=== PATIENT | male | born 1990 | race Two or more races ===

== ENCOUNTER 2021-10-10 09:00 | Emergency (ER) | payer MEDICAID, OTHER ==
[~2021-10-10] VITALS: Ht 180.3 cm; Wt 79.9 kg
[2021-10-10 09:33] VITALS: BP 121/82
[2021-10-10] MEDS ORDERED: IBUP800T27 PO (09:56)
[2021-10-10] MEDS ORDERED: SULF400T11 PO (09:56)
== END 2021-10-10 10:06 | disposition home or self-care (01) ==
LOC: ER 09:00
DX: L02.511 Cutaneous abscess of right hand (principal); Z79.1 Long term (current) use of non-steroidal anti-inflammatories (NSAID); Z79.2 Long term (current) use of antibiotics; Z88.2 Allergy status to sulfonamides

== ENCOUNTER 2022-04-01 16:03 | Emergency (ER) | payer MEDICAID ==
[~2022-04-01] VITALS: Ht 188 cm; Wt 127.2 kg
[~2022-04-01 16:03] MED LIST: IBUP800T27 PO; SULF400T11 PO
[2022-04-01 16:22] VITALS: BP 147/94
[2022-04-01] MEDS ORDERED: ACCU-CHEK COMFORT CURVE STRIP VI ONE (16:30)
== END 2022-04-01 16:44 | disposition left against medical advice (07) ==
LOC: EDBD 16:03 → ER 16:03
DX: R56.9 Unspecified convulsions (principal)

== ENCOUNTER 2023-04-01 17:26 | Emergency (ER) | payer MEDICAID ==
[~2023-04-01] VITALS: Ht 180.3 cm; Wt 81.2 kg
[~2023-04-01 17:26] MED LIST changes: +IBUP-1456 PO; -IBUP800T27 PO
[2023-04-01 17:40] VITALS: BP 130/95; PULSE 89; RESP 18; O2SAT 99
[2023-04-01 18:48] LABS: Hematocrit 39.9 % (41.0-53.0); Hemoglobin 13.2 g/dL (13.5-17.5); Mean Corpuscular Hemoglobin 29.5 pg (28.0-32.0); Mean Corpuscular Hgb Conc. 33.1 g/dL (32.0-36.0); Red Blood Cells 4.48 10^6/uL (4.5-5.90); Red Cell Distribution Width 15.1 % (11.8-14.3); White Blood Cell 2.7 10^3/uL (4.4-10.8)
[2023-04-01 18:57] LABS: Band Neutrophils % (manual) 0; Basophils % (manual) 0 (0.0-2.0); Blast Cells 0; Metamyelocytes % 0; Myelocytes % 0; Promyelocytes % 0; Reactive Lymphocytes 0
[2023-04-01 18:58] LABS: Chloride 105 mmol/L (98-107); Potassium 3.8 mmol/L (3.5-5.1); Sodium 137 mmol/L (136-145)
[2023-04-01 18:59] LABS: Anion Gap 5 (5-15); Carbon Dioxide 27 mmol/L (20-30)
[2023-04-01 19:00] LABS: Calcium 9.4 mg/dL (8.5-10.1)
[2023-04-01 19:04] LABS: Glucose 90 mg/dL (74-106)
[2023-04-01 19:05] LABS: Blood Urea Nitrogen 6 mg/dL (9-23)
[2023-04-01 19:30] LABS: Anisocytosis Slight; Eosinophils % (manual) 20 (0-7); Lymphocytes % (manual) 20 (10.0-50.0); Monocytes % (manual) 11 (0-12); Platelet Estimate Adequate
[2023-04-01 19:31] LABS: Large Platelets FEW; Ovalocytes FEW
[2023-04-01] MEDS ORDERED: SULFAMETH-TRIMETH 80/16MG-ML 10 ML in D5W 5% 250 ML IV ONE (21:00)
[2023-04-01] MEDS ORDERED: cefTRIAXone SOD 1,000 MG VL IV ONE (21:00)
[2023-04-01] MEDS ORDERED: AZITHROMYCIN 250 MG TAB PO ONE (21:00)
[2023-04-01] MEDS ORDERED: BICT1TAB4 PO (21:14)
[2023-04-01] MEDS ORDERED: DOXY-286 PO (21:14)
[2023-04-01] MEDS ORDERED: BACDST PO (21:14)
[2023-04-02] MEDS ORDERED: LEVO500T91 PO (14:06)
== END 2023-04-01 21:14 | disposition left against medical advice (07) ==
LOC: ER 17:26
DX: J18.9 Pneumonia, unspecified organism (principal); D70.9 Neutropenia, unspecified; R04.2 Hemoptysis; R07.89 Other chest pain; Z79.1 Long term (current) use of non-steroidal anti-inflammatories (NSAID); Z79.899 Other long term (current) drug therapy; Z88.2 Allergy status to sulfonamides
CPT/HCPCS: 36415; 71045; 80048; 85007; 85027; 99284; J3490; J7060

== ENCOUNTER 2023-04-02 12:13 | Emergency (ER) | payer MEDICAID ==
[~2023-04-02] VITALS: Ht 180.3 cm; Wt 80.7 kg
[~2023-04-02 12:13] MED LIST changes: +BACDST PO; +BICT1TAB4 PO; +DOXY-286 PO
[2023-04-02] MEDS ORDERED: LEVO500T91 PO (14:06)
[2023-04-02 14:16] VITALS: BP 123/73; PULSE 89; RESP 18; TEMP 97.9; O2SAT 100
== END 2023-04-02 15:05 | disposition home or self-care (01) ==
LOC: ER 12:13
DX: J18.9 Pneumonia, unspecified organism (principal)

== ENCOUNTER 2023-05-30 12:56 | Emergency (ER) | payer MEDICAID ==
[~2023-05-30] VITALS: Ht 180.3 cm; Wt 83.3 kg
[~2023-05-30 12:56] MED LIST changes: +AMOX875T3 PO; +LEVO500T91 PO; +PRED20TA2 PO; +TOB03OS OP
[2023-05-30] MEDS: AZITHROMYCIN 250 MG TAB PO ONE (15:53)
[2023-05-30 16:29] LABS: Urine Bacteria FEW /hpf (None Seen); Urine Blood Negative /uL (Negative); Urine Clarity HAZY (Clear); Urine Color Yellow (Yellow); Urine Mucus FEW (None Seen); Urine Protein, UAD 1+ (Negative); Urine Specific Gravity 1.025 (1.001-1.035); Urine WBC 4 /hpf (0 - 3)
[2023-05-30] MEDS ORDERED: COROSUS EACH EAR (17:02)
[2023-05-30] MEDS ORDERED: AZIT-185 PO (17:02)
[2023-05-30 17:38] VITALS: BP 130/80; PULSE 92; RESP 18; TEMP 98.3; O2SAT 98
== END 2023-05-30 17:39 | disposition home or self-care (01) ==
LOC: ER 12:56
DX: J18.9 Pneumonia, unspecified organism (principal); H10.9 Unspecified conjunctivitis; H60.91 Unspecified otitis externa, right ear; R07.89 Other chest pain; F17.210 Nicotine dependence, cigarettes, uncomplicated; Z59.00 Homelessness unspecified; Z79.1 Long term (current) use of non-steroidal anti-inflammatories (NSAID); Z79.2 Long term (current) use of antibiotics; Z79.899 Other long term (current) drug therapy
CPT/HCPCS: 71046; 81001

== ENCOUNTER 2023-06-04 15:21 | Inpatient (IN) | payer MEDICAID ==
[~2023-06-04] VITALS: Ht 180.3 cm; Wt 81.8 kg
[~2023-06-04 15:21] MED LIST changes: +AZIT-185 PO; +COROSUS EACH EAR
[2023-06-04] MEDS: SODIUM CHLORIDE 0.9% 1,000 ML IV ONE (16:24)
[2023-06-04 16:53] VITALS: PULSE 124; RESP 20; O2SAT 97
[2023-06-04 16:57] LABS: Eosinophils # (auto) 0 10 ^3/uL (0-0.8); Neutrophils # (auto) 2.8 10 ^3/uL (1.6-8.6); White Blood Cell 4.6 10^3/uL (4.4-10.8)
[2023-06-04 16:59] LABS: Basophils # (auto) 0.1 10 ^3/uL (0-0.2); Basophils % (auto) 1.2 % (0.0-2.0); Eosinophils % (auto) 0.9 % (0.0-7.0); Hematocrit 29.8 % (41.0-53.0); Hemoglobin 9.7 g/dL (13.5-17.5); Lymphocytes % (auto) 21.7 % (10.0-50.0); Mean Corpuscular Hemoglobin 28.1 pg (28.0-32.0); Mean Corpuscular Hgb Conc. 32.6 g/dL (32.0-36.0); Mean Corpuscular Volume 86.2 fL (80.0-100.0); Monocytes # (auto) 0.7 10 ^3/uL (0-1.3); Monocytes % (auto) 15.3 % (0.0-12.0); Neutrophils % (auto) 60.9 % (37.0-80.0); Nucleated Red Blood Cells % 0.2 %; Red Blood Cells 3.45 10^6/uL (4.5-5.90); Red Cell Distribution Width 18.7 % (11.8-14.3)
[2023-06-04 17:17] LABS: Alanine Aminotransferase 20 U/L (7-40); Albumin 3.7 g/dL (3.2-4.8); Alkaline Phosphatase 113 U/L (46-116); Anion Gap 8 (5-15); Aspartate Aminotransferase 40 U/L (13-40); BUN/Creatinine Ratio 14.9 (10.0-20.0); Bilirubin, Total 1.1 mg/dL (0.2-1.0); Blood Urea Nitrogen 14 mg/dL (9-23); Calcium 8.8 mg/dL (8.5-10.1); Carbon Dioxide 25 mmol/L (20-30); Chloride 91 mmol/L (98-107); Glucose 118 mg/dL (74-106); Potassium 3.6 mmol/L (3.5-5.1); Sodium 124 mmol/L (136-145); Total Protein 6.6 g/dL (5.7-8.2)
[2023-06-04 17:23] LABS: Hypochromia Slight; Platelet Estimate Decreased
[2023-06-04] MEDS: PIPERACILLIN-TAZO 4.5GM 100 ML IV ONE (17:40)
[2023-06-04] MEDS: SODIUM CHLORIDE 0.9% 2,500 ML IV ONE ×2 (17:47→19:00)
[2023-06-04] MEDS: VANCOMYCIN 1GM/200ML 200 ML IV ONE (18:59)
[2023-06-04] MEDS ORDERED: MORPHINE SULFATE 4 MG/ML SYR/VIAL IV PRN (19:00)
[2023-06-04] MEDS: SODIUM CHLORIDE 0.9% 1,000 ML IV SCH (19:00)
[2023-06-04] MEDS ORDERED: DOCUSATE SOD 100 MG CAP PO PRN (19:00)
[2023-06-04] MEDS ORDERED: MORPHINE SULFATE INJ 2 MG/ml SYRG IV PRN (19:00)
[2023-06-04] MEDS ORDERED: VANCOMYCIN PER PHARMACY 0 MG IV SCH (19:00)
[2023-06-04 19:45] VITALS: PULSE 122; RESP 21; O2SAT 93
[2023-06-04 20:08] LABS: % Iron Saturation 15.2 % (20-55)
[2023-06-04 20:11] LABS: Ferritin 1041.1 ng/mL (22-322); Folate (Folic Acid) 11.96 ng/mL (>5.38)
[2023-06-04] MEDS: NYSTATIN (MOUTH-THROAT) 500,000 UNITS/5 ML SUSP MT SCH (21:45)
[2023-06-04] MEDS: CIPROFLOXACIN 0.3%OPTH(EYE) SOL 5ML LEFTEYE SCH (21:45)
[2023-06-04 21:47] LABS: Rapid Influenza A Negative (Negative); Rapid Influenza B Negative (Negative); Rapid Strep A Screen-Throat Negative
[2023-06-04] MEDS ORDERED: VANCOMYCIN 1GM/200ML 200 ML IV SCH (22:00)
[2023-06-04 23:41] VITALS: BP 126/76; PULSE 138; RESP 22; TEMP 99.6; O2SAT 96
[2023-06-05] VITALS (7 sets, daily range): BP systolic 102–117; BP diastolic 59–71; PULSE 95–116; RESP 17–20; TEMP 97.6–99.5; O2SAT 94–97
[2023-06-05] MEDS: PIPERACILLIN-TAZOB 3.375GM 100 ML IV SCH (00:54)
[2023-06-05] MEDS: DexAMETHasone SOD PHOS 10MG/1ML VIAL INJ IV SCH (00:54)
[2023-06-05 05:26] LABS: Basophils # (auto) 0 10 ^3/uL (0-0.2); Eosinophils # (auto) 0 10 ^3/uL (0-0.8); Eosinophils % (auto) 0.2 % (0.0-7.0); Hemoglobin 8.2 g/dL (13.5-17.5); Monocytes # (auto) 0.5 10 ^3/uL (0-1.3); White Blood Cell 3.9 10^3/uL (4.4-10.8)
[2023-06-05 05:27] LABS: Hematocrit 24.6 % (41.0-53.0); Lymphocytes # (auto) 0.6 10 ^3/uL (0.4-5.4); Lymphocytes % (auto) 14.4 % (10.0-50.0); Mean Corpuscular Hemoglobin 28.7 pg (28.0-32.0); Mean Corpuscular Hgb Conc. 33.5 g/dL (32.0-36.0); Mean Corpuscular Volume 85.8 fL (80.0-100.0); Monocytes % (auto) 13.3 % (0.0-12.0); Neutrophils # (auto) 2.8 10 ^3/uL (1.6-8.6); Neutrophils % (auto) 71.1 % (37.0-80.0); Nucleated Red Blood Cells % 0.1 %; Red Blood Cells 2.87 10^6/uL (4.5-5.90); Red Cell Distribution Width 18.5 % (11.8-14.3)
[2023-06-05 05:47] LABS: Alanine Aminotransferase 13 U/L (7-40); Albumin 2.7 g/dL (3.2-4.8); Alkaline Phosphatase 93 U/L (46-116); Anion Gap 5 (5-15); Aspartate Aminotransferase 26 U/L (13-40); BUN/Creatinine Ratio 12.6 (10.0-20.0); Bilirubin, Total 0.7 mg/dL (0.2-1.0); Blood Urea Nitrogen 11 mg/dL (9-23); Calcium 7.6 mg/dL (8.7-10.4); Carbon Dioxide 22 mmol/L (20-30); Chloride 99 mmol/L (98-107); Glucose 125 mg/dL (74-106); Potassium 3.7 mmol/L (3.5-5.1); Sodium 126 mmol/L (136-145); Total Protein 5.2 g/dL (5.7-8.2)
[2023-06-05] MEDS: VANCOMYCIN 1GM/200ML 200 ML IV SCH (12:05)
[2023-06-05 17:31] LABS: COVID19 ANTIGEN SOFIA FIA NEGATIVE (NEGATIVE)
[2023-06-05] MEDS: AZITHROMYCIN 250 MG TAB PO ONE (18:07)
[2023-06-05 20:22] LABS: Urine Bacteria NONE SEEN /hpf (None Seen); Urine Blood Negative /uL (Negative); Urine Clarity HAZY (Clear); Urine Color Colorless (Yellow); Urine Protein, UAD Negative (Negative); Urine Specific Gravity 1.015 (1.001-1.035); Urine Urobilinogen Normal (Negative); Urine WBC 2 /hpf (0 - 3); Urine pH 5.5 (5.0-8.0)
[2023-06-05 20:27] LABS: Amphetamine Screen, Urine Neg (NEGATIVE); Benzodiazephine Screen, Urine Neg (NEGATIVE); Cannabinoid Screen, Urine Neg (NEGATIVE); Cocaine Screen, Urine Neg (NEGATIVE); Opiate Scree,Urine Neg (NEGATIVE); Phencyclidine Screen, Urine Neg (NEGATIVE)
[2023-06-05 20:45] LABS: Barbiturate Scree,Urine Neg (NEGATIVE)
[2023-06-05] MEDS: ALPRAZolam 0.5 MG TAB PO SCH (22:00)
[2023-06-06] VITALS (8 sets, daily range): BP systolic 112–124; BP diastolic 67–78; PULSE 60–111; RESP 14–20; TEMP 97.2–98.4; O2SAT 92–98
[2023-06-06 08:06] LABS: Basos 0 % (Not Estab.); Eos 0 % (Not Estab.); Hematocrit 23.1 % (37.5-51.0); Hematology Comments: Note: (.); Hemoglobin 8.1 g/dL (13.0-17.7); Immature Cells Note (.); Lymphs 10 % (Not Estab.); Lymphs (Absolute) 0.4 x10E3/uL (0.7-3.1); MCH 29.1 pg (26.6-33.0); MCHC 35.1 g/dL (31.5-35.7); MCV 83 fL (79-97); Monocytes 12 % (Not Estab.); Monocytes (Absolute) 0.5 x10E3/uL (0.1-0.9); Neutrophils 75 % (Not Estab.); Platelets 65 x10E3/uL (150-450); RBC 2.78 x10E6/uL (4.14-5.80); RDW 15.5 % (11.6-15.4); WBC 3.9 x10E3/uL (3.4-10.8)
[2023-06-06 09:06] LABS: % CD 4 Pos Lymph 0.8 % (30.8-58.5); Absolute CD 4 Helper 3 /uL (359-1519); CD4/CD8 Ratio 0.01 (0.92-3.72)
[2023-06-06] MEDS: AZITHROMYCIN 250 MG TAB PO SCH (11:11)
[2023-06-06] MEDS: FERROUS SULFATE 325mg EC TAB PO SCH (18:19)
[2023-06-07 05:00] VITALS: BP 111/61; PULSE 96; RESP 18; TEMP 98; O2SAT 100
[2023-06-07 05:52] LABS: Red Cell Distribution Width 19.1 % (11.8-14.3); White Blood Cell 2.4 10^3/uL (4.4-10.8)
[2023-06-07 05:55] LABS: Hematocrit 23.7 % (41.0-53.0); Hemoglobin 7.9 g/dL (13.5-17.5); Mean Corpuscular Hemoglobin 28.7 pg (28.0-32.0); Mean Corpuscular Hgb Conc. 33.4 g/dL (32.0-36.0); Mean Corpuscular Volume 85.8 fL (80.0-100.0); Red Blood Cells 2.76 10^6/uL (4.5-5.90)
[2023-06-07 06:15] LABS: Alanine Aminotransferase 18 U/L (7-40); Albumin 2.7 g/dL (3.2-4.8); Alkaline Phosphatase 117 U/L (46-116); Anion Gap 8 (5-15); Aspartate Aminotransferase 29 U/L (13-40); BUN/Creatinine Ratio 13.7 (10.0-20.0); Basophils % (manual) 0 (0.0-2.0); Blast Cells 0; Blood Urea Nitrogen 10 mg/dL (9-23); Calcium 8.2 mg/dL (8.7-10.4); Carbon Dioxide 25 mmol/L (20-30); Chloride 99 mmol/L (98-107); Glucose 108 mg/dL (74-106); Magnesium 1.7 mg/dL (1.6-2.6); Metamyelocytes % 0; Myelocytes % 0; Promyelocytes % 0; Reactive Lymphocytes 0; Total Protein 5.2 g/dL (5.7-8.2)
[2023-06-07 06:33] LABS: Sodium 132 mmol/L (136-145)
[2023-06-07 06:47] LABS: Bilirubin, Total 0.6 mg/dL (0.2-1.0); Pre Albumin 5.6 md/dL (10.0-40.0)
[2023-06-07 06:51] LABS: Thyroid Stimulating Hormone 2.52 uIU/mL (0.55-4.78)
[2023-06-07 06:55] LABS: CRP High Sensitivity 6.76 mg/dL (<1.0)
[2023-06-07 08:00] VITALS: BP 113/61; PULSE 104; PULSE 107; RESP 14; TEMP 98.1; O2SAT 96
[2023-06-07 08:07] LABS: Erythrocyte Sedimentation Rate 79 mm/hr (0-20)
[2023-06-07 09:00] VITALS: BP 113/61; PULSE 104; RESP 14; TEMP 98.1; O2SAT 96
[2023-06-07 09:15] LABS: Band Neutrophils % (manual) 10; Eosinophils % (manual) 2 (0-7); Lymphocytes % (manual) 16 (10.0-50.0); Monocytes % (manual) 22 (0-12); Platelet Estimate Decreased
[2023-06-07] MEDS: BIKTARVY PO SCH (09:21)
[2023-06-07] MEDS: CYANOCOBALAMIN (B-12) 1000 MCG/1 ML VIAL IM SCH (09:36)
[2023-06-07 20:00] VITALS: PULSE 125; RESP 20; O2SAT 96
[2023-06-07 21:07] VITALS: BP 129/67; PULSE 125; RESP 25; TEMP 102.5; O2SAT 94
[2023-06-08] VITALS (9 sets, daily range): BP systolic 105–135; BP diastolic 49–71; PULSE 16–142; RESP 14–22; TEMP 97.6–101.2; O2SAT 95–97
[2023-06-08] MEDS: ACETAMINOPHEN 325 MG TAB PO PRN ×2 (03:36→21:11)
[2023-06-08] MEDS: guaiFENesin-DM 100/10mg/5ml SYR PO PRN (04:05)
[2023-06-08 06:31] LABS: Hematocrit 22.9 % (41.0-53.0); Mean Corpuscular Volume 86.2 fL (80.0-100.0); Red Blood Cells 2.66 10^6/uL (4.5-5.90); White Blood Cell 2.4 10^3/uL (4.4-10.8)
[2023-06-08 06:34] LABS: Hemoglobin 7.7 g/dL (13.5-17.5); Mean Corpuscular Hemoglobin 28.8 pg (28.0-32.0); Mean Corpuscular Hgb Conc. 33.5 g/dL (32.0-36.0); Red Cell Distribution Width 19.7 % (11.8-14.3)
[2023-06-08 06:39] LABS: Band Neutrophils % (manual) 0; Basophils % (manual) 0 (0.0-2.0); Blast Cells 0; Myelocytes % 0; Promyelocytes % 0; Reactive Lymphocytes 0
[2023-06-08 06:48] LABS: Alanine Aminotransferase 23 U/L (7-40); Alkaline Phosphatase 122 U/L (46-116); Anion Gap 7 (5-15); Aspartate Aminotransferase 37 U/L (13-40); BUN/Creatinine Ratio 11.7 (10.0-20.0); Blood Urea Nitrogen 9 mg/dL (9-23); Calcium 7.8 mg/dL (8.7-10.4); Carbon Dioxide 24 mmol/L (20-30); Chloride 99 mmol/L (98-107); Glucose 101 mg/dL (74-106); Potassium 2.7 mmol/L (3.5-5.1); Sodium 130 mmol/L (136-145)
[2023-06-08 06:49] LABS: Albumin 2.5 g/dL (3.2-4.8); Bilirubin, Total 1.1 mg/dL (0.2-1.0)
[2023-06-08 08:18] LABS: Eosinophils % (manual) 5 (0-7); Lymphocytes % (manual) 25 (10.0-50.0); Metamyelocytes % 1; Monocytes % (manual) 22 (0-12); Platelet Estimate Decreased
[2023-06-08] MEDS: POTASSIUM CHL 20MEQ/100ML 100 ML IV ONE (08:45)
[2023-06-08] MEDS: POTASSIUM CHL 20 Meq TABLET PO ONE (08:46)
[2023-06-08 09:19] LABS: Hepatitis B Surface Antigen Negative (Negative)
[2023-06-08 09:40] LABS: Hepatitis C Antibody Negative (Negative)
[2023-06-08] MEDS: SULFAMETHOX W/TRIMETH(800/160MG) DS TAB PO ONE (13:20)
[2023-06-08] MEDS: diphenhdrAMINE HCL 50 MG/1 ML VL IV ONE (17:52)
[2023-06-08] MEDS: dilTIAZem 25 MG/5 ML VIAL IV ONE (21:01)
[2023-06-09] VITALS (9 sets, daily range): BP systolic 111–143; BP diastolic 54–78; PULSE 94–140; RESP 18–22; TEMP 97.9–101; O2SAT 93–99
[2023-06-09 08:07] LABS: RPR Non Reactive (Non Reactive)
[2023-06-09 09:20] LABS: Hemoglobin 7.7 g/dL (13.5-17.5); White Blood Cell 2.5 10^3/uL (4.4-10.8)
[2023-06-09 09:22] LABS: Hematocrit 23.3 % (41.0-53.0); Mean Corpuscular Hemoglobin 28.5 pg (28.0-32.0); Mean Corpuscular Hgb Conc. 33.1 g/dL (32.0-36.0); Mean Corpuscular Volume 86.1 fL (80.0-100.0); Red Cell Distribution Width 19.7 % (11.8-14.3)
[2023-06-09 09:37] LABS: Alanine Aminotransferase 27 U/L (7-40); Albumin 2.8 g/dL (3.2-4.8); Alkaline Phosphatase 131 U/L (46-116); Anion Gap 4 (5-15); Aspartate Aminotransferase 47 U/L (13-40); BUN/Creatinine Ratio 11.5 (10.0-20.0); Blood Urea Nitrogen 9 mg/dL (9-23); Calcium 7.8 mg/dL (8.5-10.1); Carbon Dioxide 26 mmol/L (20-30); Chloride 99 mmol/L (98-107); Glucose 111 mg/dL (74-106); Potassium 3.3 mmol/L (3.5-5.1); Sodium 129 mmol/L (136-145)
[2023-06-09 09:38] LABS: Total Protein 5.3 g/dL (5.7-8.2)
[2023-06-09 09:59] LABS: Basophils % (manual) 0 (0.0-2.0); Blast Cells 0; Eosinophils % (manual) 0 (0-7); Myelocytes % 0; Promyelocytes % 0; Reactive Lymphocytes 0
[2023-06-09 11:06] LABS: Erythropoietin 150.2 mIU/mL (2.6-18.5)
[2023-06-09 13:47] LABS: Band Neutrophils % (manual) 4; Lymphocytes % (manual) 28 (10.0-50.0); Metamyelocytes % 4; Monocytes % (manual) 24 (0-12)
[2023-06-09 13:48] LABS: Platelet Estimate Decrea
[2023-06-09] MEDS: SULFAMETHOX W/TRIMETH(800/160MG) DS TAB PO ONE (18:50)
[2023-06-09] MEDS: POTASSIUM EFFERVESENT TAB 25 MEQ PO ONE (22:02)
[2023-06-09] MEDS: METOPROLOL TARTRATE 25 MG TAB PO ONE (22:03)
[2023-06-09] MEDS: PIPERACILLIN-TAZO 4.5GM 100 ML IV SCH (22:15)
[2023-06-10] VITALS (7 sets, daily range): BP systolic 108–130; BP diastolic 62–69; PULSE 95–140; RESP 18–32; TEMP 98.9–100.7; O2SAT 85–96
[2023-06-10 06:23] LABS: Hematocrit 21.4 % (41.0-53.0); Hemoglobin 7.2 g/dL (13.5-17.5); Mean Corpuscular Hemoglobin 28.7 pg (28.0-32.0); Mean Corpuscular Hgb Conc. 33.4 g/dL (32.0-36.0); Mean Corpuscular Volume 85.8 fL (80.0-100.0); Red Cell Distribution Width 19.5 % (11.8-14.3)
[2023-06-10 06:39] LABS: Alanine Aminotransferase 28 U/L (7-40); Alkaline Phosphatase 150 U/L (46-116); Anion Gap 6 (5-15); BUN/Creatinine Ratio 12.1 (10.0-20.0); Blood Urea Nitrogen 11 mg/dL (9-23); Calcium 7.8 mg/dL (8.5-10.1); Carbon Dioxide 24 mmol/L (20-30); Chloride 99 mmol/L (98-107); Glucose 109 mg/dL (74-106); Potassium 3.3 mmol/L (3.5-5.1); Sodium 129 mmol/L (136-145)
[2023-06-10 06:41] LABS: Albumin 2.7 g/dL (3.2-4.8); Aspartate Aminotransferase 59 U/L (13-40); Bilirubin, Total 0.7 mg/dL (0.2-1.0); Total Protein 5.1 g/dL (5.7-8.2)
[2023-06-10 07:36] LABS: White Blood Cell 1.4 10^3/uL (4.4-10.8)
[2023-06-10 07:37] LABS: Basophils % (manual) 0 (0.0-2.0); Blast Cells 0; Eosinophils % (manual) 0 (0-7); Metamyelocytes % 0; Myelocytes % 0; Promyelocytes % 0; Reactive Lymphocytes 0
[2023-06-10 08:04] LABS: Band Neutrophils % (manual) 10; Lymphocytes % (manual) 19 (10.0-50.0); Monocytes % (manual) 18 (0-12)
[2023-06-10 08:05] LABS: Platelet Estimate Decreased
[2023-06-10] MEDS: POTASSIUM CHL 20 Meq TABLET PO ONE (10:56)
[2023-06-10] MEDS: SULFAMETH TRIMETH IV ONE (12:30)
[2023-06-10] MEDS: D5W 5% IV ONE (12:30)
[2023-06-10 19:39] LABS: Lactic Acid w/Reflex 2.2 mmol/L (0.4-2.0)
[2023-06-10] MEDS: SULFAMETH TRIMETH IV SCH (22:00)
[2023-06-10] MEDS: D5W 5% IV SCH (22:00)
[2023-06-10] MEDS: CYANOCOBALAMIN (B-12) 1000 MCG/1 ML VIAL IM SCH (22:00)
[2023-06-11] VITALS (10 sets, daily range): BP systolic 105–132; BP diastolic 33–80; PULSE 104–132; RESP 18–36; TEMP 97.8–100.4; O2SAT 63–92
[2023-06-11 05:55] LABS: White Blood Cell 2.6 10^3/uL (4.4-10.8)
[2023-06-11 05:58] LABS: Hematocrit 20.1 % (41.0-53.0); Mean Corpuscular Hemoglobin 28.3 pg (28.0-32.0); Mean Corpuscular Hgb Conc. 32.8 g/dL (32.0-36.0); Mean Corpuscular Volume 86.2 fL (80.0-100.0); Red Blood Cells 2.33 10^6/uL (4.5-5.90); Red Cell Distribution Width 19.8 % (11.8-14.3)
[2023-06-11 06:07] LABS: Hemoglobin 6.6 g/dL (13.5-17.5)
[2023-06-11 06:08] LABS: Basophils % (manual) 0 (0.0-2.0); Blast Cells 0; Eosinophils % (manual) 0 (0-7); Myelocytes % 0; Promyelocytes % 0; Reactive Lymphocytes 0
[2023-06-11 06:11] LABS: Alanine Aminotransferase 27 U/L (7-40); Albumin 2.4 g/dL (3.2-4.8); Alkaline Phosphatase 162 U/L (46-116); Anion Gap 5 (5-15); Aspartate Aminotransferase 67 U/L (13-40); BUN/Creatinine Ratio 11.8 (10.0-20.0); Blood Urea Nitrogen 10 mg/dL (9-23); Calcium 7.5 mg/dL (8.7-10.4); Carbon Dioxide 24 mmol/L (20-30); Chloride 100 mmol/L (98-107); Glucose 107 mg/dL (74-106); Magnesium 1.8 mg/dL (1.6-2.6); Potassium 4.1 mmol/L (3.5-5.1); Sodium 129 mmol/L (136-145)
[2023-06-11 06:12] LABS: Bilirubin, Total 0.5 mg/dL (0.2-1.0); Total Protein 4.7 g/dL (5.7-8.2)
[2023-06-11 07:41] LABS: Band Neutrophils % (manual) 9; Lymphocytes % (manual) 39 (10.0-50.0); Metamyelocytes % 3; Monocytes % (manual) 22 (0-12); Platelet Estimate Decreased
[2023-06-11] MEDS: SULFAMETH TRIMETH IV SCH (10:01)
[2023-06-11] MEDS: D5W 5% IV SCH (10:01)
[2023-06-11] MEDS: ERYTHROMY OPTH OINT 5mg/gm 1gm or 3.5gm tube OP SCH (10:02)
[2023-06-11 13:07] LABS: QuantiFERON-TB Gold Plus Negative (Negative)
[2023-06-11] MEDS: cefTRIAXone 2GM/50ML D5W 50 ML IV SCH (15:48)
[2023-06-11] MEDS: predniSONE 20 MG TAB PO ONE (19:05)
[2023-06-11] MEDS: FUROSEMIDE 20 MG/2 ML VIAL IV ONE (22:34)
[2023-06-12] VITALS (37 sets, daily range): BP systolic 97–146; BP diastolic 57–85; PULSE 71–124; RESP 18–55; TEMP 96.9–99.5; O2SAT 83–98
[2023-06-12 06:12] LABS: Basophils # (auto) 0 10 ^3/uL (0-0.2); Eosinophils # (auto) 0 10 ^3/uL (0-0.8); Lymphocytes # (auto) 0.8 10 ^3/uL (0.4-5.4); Monocytes # (auto) 0.4 10 ^3/uL (0-1.3); Neutrophils # (auto) 1.8 10 ^3/uL (1.6-8.6)
[2023-06-12 06:16] LABS: Basophils % (auto) 0.5 % (0.0-2.0); Hematocrit 25.6 % (41.0-53.0); Hemoglobin 8.3 g/dL (13.5-17.5); Lymphocytes % (auto) 26.5 % (10.0-50.0); Mean Corpuscular Hemoglobin 27.9 pg (28.0-32.0); Mean Corpuscular Hgb Conc. 32.3 g/dL (32.0-36.0); Mean Corpuscular Volume 86.4 fL (80.0-100.0); Monocytes % (auto) 14.2 % (0.0-12.0); Neutrophils % (auto) 58.8 % (37.0-80.0); Nucleated Red Blood Cells % 1.1 %; Red Blood Cells 2.96 10^6/uL (4.5-5.90); Red Cell Distribution Width 19.9 % (11.8-14.3)
[2023-06-12 06:32] LABS: Alanine Aminotransferase 26 U/L (7-40); Albumin 2.5 g/dL (3.2-4.8); Alkaline Phosphatase 161 U/L (46-116); Anion Gap 5 (5-15); BUN/Creatinine Ratio 14.3 (10.0-20.0); Blood Urea Nitrogen 12 mg/dL (9-23); Calcium 7.7 mg/dL (8.7-10.4); Carbon Dioxide 25 mmol/L (20-30); Chloride 98 mmol/L (98-107); Glucose 141 mg/dL (74-106); Magnesium 1.8 mg/dL (1.6-2.6); Potassium 4.4 mmol/L (3.5-5.1); Sodium 128 mmol/L (136-145)
[2023-06-12 06:33] LABS: Aspartate Aminotransferase 61 U/L (13-40); Bilirubin, Total 0.4 mg/dL (0.2-1.0); Total Protein 4.9 g/dL (5.7-8.2)
[2023-06-12 07:49] LABS: Platelet Estimate Decreased
[2023-06-12 07:50] LABS: Anisocytosis Slight
[2023-06-12] MEDS: predniSONE 20 MG TAB PO SCH (09:45)
[2023-06-12] MEDS: FUROSEMIDE 40 MG/4 ML VIAL IV ONE (12:10)
[2023-06-12] MEDS: LORazepam 2MG/ML-1ML VIAL IV PRN (14:54)
[2023-06-12] MEDS: methylPREDNISolone SOD SUCC 125 MG/2 ML VL IV SCH (14:55)
[2023-06-12 15:43] LABS: Base Excess -1.8 mmol/L (-2.0-2.0)
[2023-06-12] MEDS: SULFAMETH TRIMETH IV SCH (17:17)
[2023-06-12] MEDS: D5W 5% IV SCH (17:17)
[2023-06-13] VITALS (44 sets, daily range): BP systolic 100–116; BP diastolic 52–74; PULSE 77–101; RESP 24–59; TEMP 97–98.2; O2SAT 66–100
[2023-06-13 04:15] LABS: Hemoglobin 7.6 g/dL (13.5-17.5); White Blood Cell 2.6 10^3/uL (4.4-10.8)
[2023-06-13 04:18] LABS: Hematocrit 22.8 % (41.0-53.0); Mean Corpuscular Hemoglobin 28.3 pg (28.0-32.0); Mean Corpuscular Hgb Conc. 33.3 g/dL (32.0-36.0); Mean Corpuscular Volume 84.9 fL (80.0-100.0); Red Blood Cells 2.68 10^6/uL (4.5-5.90)
[2023-06-13 04:22] LABS: Alanine Aminotransferase 19 U/L (7-40); Albumin 2.4 g/dL (3.2-4.8); Alkaline Phosphatase 136 U/L (46-116); Anion Gap 4 (5-15); Aspartate Aminotransferase 39 U/L (13-40); Calcium 7.4 mg/dL (8.7-10.4); Carbon Dioxide 23 mmol/L (20-30); Chloride 101 mmol/L (98-107); Glucose 145 mg/dL (74-106); Potassium 4.2 mmol/L (3.5-5.1); Sodium 128 mmol/L (136-145)
[2023-06-13 04:23] LABS: Bilirubin, Total 0.3 mg/dL (0.2-1.0)
[2023-06-13 05:08] LABS: Basophils % (manual) 0 (0.0-2.0); Blast Cells 0; Eosinophils % (manual) 0 (0-7); Metamyelocytes % 0; Myelocytes % 0; Promyelocytes % 0; Reactive Lymphocytes 0; Red Cell Distribution Width 20.2 % (11.8-14.3)
[2023-06-13 05:27] LABS: BUN/Creatinine Ratio 21.3 (10.0-20.0); Blood Urea Nitrogen 17 mg/dL (9-23)
[2023-06-13 05:29] LABS: Total Protein 4.7 g/dL (5.7-8.2)
[2023-06-13 07:31] LABS: Base Excess -3.2 mmol/L (-2.0-2.0)
[2023-06-13 08:09] LABS: Anisocytosis Slight; Band Neutrophils % (manual) 7; Lymphocytes % (manual) 19 (10.0-50.0); Monocytes % (manual) 11 (0-12); Platelet Estimate Markedly Decreased
[2023-06-13 08:10] LABS: Tear Drop Cells FEW
[2023-06-13] MEDS: FUROSEMIDE 40 MG/4 ML VIAL ONE (08:19)
[2023-06-13] MEDS: FUROSEMIDE 40 MG/4 ML VIAL IV ONE (08:36)
[2023-06-13] MEDS: LORazepam 2MG/ML-1ML VIAL IV ONE (10:00)
[2023-06-13] MEDS: FUROSEMIDE 40 MG/4 ML VIAL IV SCH (18:30)
[2023-06-13] MEDS: diphenhdrAMINE HCL 50 MG/1 ML VL IV PRN (22:20)
[2023-06-14] VITALS (45 sets, daily range): BP systolic 95–127; BP diastolic 57–91; PULSE 77–101; RESP 24–56; TEMP 97–98.2; O2SAT 84–100
[2023-06-14 10:32] LABS: Hemoglobin 8.2 g/dL (13.5-17.5)
[2023-06-14 10:35] LABS: Mean Corpuscular Hemoglobin 28.5 pg (28.0-32.0); Mean Corpuscular Hgb Conc. 32.6 g/dL (32.0-36.0); Mean Corpuscular Volume 87.5 fL (80.0-100.0); Red Blood Cells 2.86 10^6/uL (4.5-5.90); White Blood Cell 3.4 10^3/uL (4.4-10.8)
[2023-06-14 10:41] LABS: Basophils % (manual) 0 (0.0-2.0); Blast Cells 0; Eosinophils % (manual) 0 (0-7); Metamyelocytes % 0; Myelocytes % 0; Promyelocytes % 0; Reactive Lymphocytes 0
[2023-06-14 10:48] LABS: Alanine Aminotransferase 16 U/L (7-40); Albumin 2.5 g/dL (3.2-4.8); Alkaline Phosphatase 122 U/L (46-116); Anion Gap 9 (5-15); Aspartate Aminotransferase 31 U/L (13-40); Bilirubin, Total 0.3 mg/dL (0.2-1.0); Blood Urea Nitrogen 18 mg/dL (9-23); Calcium 7.5 mg/dL (8.5-10.1); Carbon Dioxide 20 mmol/L (20-30); Chloride 102 mmol/L (98-107); Glucose 126 mg/dL (74-106); Potassium 4.2 mmol/L (3.5-5.1); Sodium 131 mmol/L (136-145); Total Protein 4.8 g/dL (5.7-8.2)
[2023-06-14 11:04] LABS: Magnesium 2.1 mg/dL (1.6-2.6)
[2023-06-14 11:12] LABS: Anisocytosis Slight; Band Neutrophils % (manual) 7; Lymphocytes % (manual) 9 (10.0-50.0); Monocytes % (manual) 7 (0-12); Platelet Estimate Decreased; Polychromasia Slight
[2023-06-14 11:13] LABS: Tear Drop Cells FEW
[2023-06-15] VITALS (44 sets, daily range): BP systolic 108–130; BP diastolic 53–85; PULSE 67–97; RESP 11–49; TEMP 97.7–98.5; O2SAT 92–100
[2023-06-15] MEDS ORDERED: MIDAZOLAM HCL 5 MG/ML-1ML VIAL ONE (09:59)
[2023-06-15] MEDS ORDERED: LIDOCAINE 2% JELLY 11ml (GLYDO) ONE (09:59)
[2023-06-15] MEDS ORDERED: diphenhdrAMINE HCL 50 MG/1 ML VL ONE (10:00)
[2023-06-15] MEDS ORDERED: fentaNYL CITRATE 100 MCG/2 ML VL ONE (10:00)
[2023-06-15] MEDS ORDERED: LIDOCAINE 2%HCL (LOCAL ANESTH.) INJ 20ML MDV ONE (10:03)
[2023-06-15] MEDS ORDERED: EPINEPHrine HCL 1 MG/1 ML AMP ONE (10:03)
[2023-06-15 10:16] LABS: Basophils # (auto) 0 10 ^3/uL (0-0.2); Eosinophils # (auto) 0 10 ^3/uL (0-0.8); Lymphocytes # (auto) 0.3 10 ^3/uL (0.4-5.4); Monocytes # (auto) 0.2 10 ^3/uL (0-1.3); Neutrophils # (auto) 2.3 10 ^3/uL (1.6-8.6); White Blood Cell 2.8 10^3/uL (4.4-10.8)
[2023-06-15 10:18] LABS: Basophils % (auto) 0.6 % (0.0-2.0); Hematocrit 23.3 % (41.0-53.0); Hemoglobin 7.8 g/dL (13.5-17.5); Lymphocytes % (auto) 11.6 % (10.0-50.0); Mean Corpuscular Hemoglobin 29.2 pg (28.0-32.0); Mean Corpuscular Hgb Conc. 33.3 g/dL (32.0-36.0); Mean Corpuscular Volume 87.7 fL (80.0-100.0); Monocytes % (auto) 5.8 % (0.0-12.0); Nucleated Red Blood Cells % 0.8 %; Red Blood Cells 2.66 10^6/uL (4.5-5.90)
[2023-06-15 10:27] LABS: Red Cell Distribution Width 20.6 % (11.8-14.3)
[2023-06-15 10:31] LABS: Alanine Aminotransferase 31 U/L (7-40); Albumin 2.4 g/dL (3.2-4.8); Alkaline Phosphatase 128 U/L (46-116); Anion Gap 8 (5-15); Aspartate Aminotransferase 40 U/L (13-40); BUN/Creatinine Ratio 17.4 (10.0-20.0); Bilirubin, Total 0.3 mg/dL (0.2-1.0); Blood Urea Nitrogen 15 mg/dL (9-23); Calcium 7.5 mg/dL (8.7-10.4); Carbon Dioxide 20 mmol/L (20-30); Chloride 102 mmol/L (98-107); Glucose 176 mg/dL (74-106); Magnesium 2.1 mg/dL (1.6-2.6); Potassium 4.2 mmol/L (3.5-5.1); Sodium 130 mmol/L (136-145); Total Protein 4.5 g/dL (5.7-8.2)
[2023-06-15] MEDS: MUPIROCIN 2% OINT 15gm or 22gm FOR MRSA NARES EACHNOSTRI SCH (22:47)
[2023-06-16] VITALS (7 sets, daily range): BP systolic 101–126; BP diastolic 49–80; PULSE 72–95; RESP 16–18; TEMP 97.6–98.3; O2SAT 95–98
[2023-06-16 05:53] LABS: Basophils # (auto) 0 10 ^3/uL (0-0.2); Basophils % (auto) 0.3 % (0.0-2.0); Eosinophils # (auto) 0 10 ^3/uL (0-0.8); Hemoglobin 8.5 g/dL (13.5-17.5); Lymphocytes # (auto) 0.4 10 ^3/uL (0.4-5.4); Lymphocytes % (auto) 12.7 % (10.0-50.0); Mean Corpuscular Hemoglobin 28.9 pg (28.0-32.0); Mean Corpuscular Hgb Conc. 32.7 g/dL (32.0-36.0); Mean Corpuscular Volume 88.6 fL (80.0-100.0); Monocytes # (auto) 0.2 10 ^3/uL (0-1.3); Monocytes % (auto) 6.6 % (0.0-12.0); Neutrophils # (auto) 2.5 10 ^3/uL (1.6-8.6); Neutrophils % (auto) 80.4 % (37.0-80.0); Nucleated Red Blood Cells % 0.7 %; Red Blood Cells 2.94 10^6/uL (4.5-5.90); White Blood Cell 3.1 10^3/uL (4.4-10.8)
[2023-06-16 06:07] LABS: Alanine Aminotransferase 28 U/L (7-40); Alkaline Phosphatase 119 U/L (46-116); Anion Gap 8 (5-15); Calcium 8.1 mg/dL (8.7-10.4); Carbon Dioxide 22 mmol/L (20-30); Chloride 102 mmol/L (98-107); Glucose 106 mg/dL (74-106); Magnesium 2.1 mg/dL (1.6-2.6); Sodium 132 mmol/L (136-145)
[2023-06-16 06:08] LABS: Albumin 2.6 g/dL (3.2-4.8); Aspartate Aminotransferase 28 U/L (13-40)
[2023-06-16 06:09] LABS: Bilirubin, Total 0.4 mg/dL (0.2-1.0); Total Protein 4.9 g/dL (5.7-8.2)
[2023-06-16 06:20] LABS: Red Cell Distribution Width 20.5 % (11.8-14.3)
[2023-06-16 06:34] LABS: BUN/Creatinine Ratio 20.5 (10.0-20.0); Blood Urea Nitrogen 16 mg/dL (9-23)
[2023-06-16] MEDS: LORATADINE 10 MG TAB PO SCH (13:09)
[2023-06-16 20:03] LABS: Lactic Acid w/Reflex 3.2 mmol/L (0.4-2.0)
[2023-06-16] MEDS: SODIUM CHLORIDE 0.9% 1,000 ML IV ONE (21:32)
[2023-06-16] MEDS: ONDANSETRON HCL 4 MG/2 ML VIAL IV PRN (21:56)
[2023-06-17] VITALS (8 sets, daily range): BP systolic 113–148; BP diastolic 68–90; PULSE 87–109; RESP 19–92; TEMP 97.5–98.7; O2SAT 95–98
[2023-06-17 06:17] LABS: Hemoglobin 8.3 g/dL (13.5-17.5); White Blood Cell 3.4 10^3/uL (4.4-10.8)
[2023-06-17 06:20] LABS: Hematocrit 25.1 % (41.0-53.0); Mean Corpuscular Hemoglobin 29.1 pg (28.0-32.0); Mean Corpuscular Hgb Conc. 33.1 g/dL (32.0-36.0); Red Blood Cells 2.85 10^6/uL (4.5-5.90)
[2023-06-17 06:32] LABS: Alanine Aminotransferase 38 U/L (7-40); Alkaline Phosphatase 131 U/L (46-116); Calcium 8.2 mg/dL (8.7-10.4); Carbon Dioxide 23 mmol/L (20-30); Chloride 101 mmol/L (98-107)
[2023-06-17 06:33] LABS: Albumin 2.7 g/dL (3.2-4.8); Anion Gap 7 (5-15); Aspartate Aminotransferase 40 U/L (13-40); BUN/Creatinine Ratio 18.2 (10.0-20.0); Bilirubin, Total 0.4 mg/dL (0.2-1.0); Blood Urea Nitrogen 14 mg/dL (9-23); Glucose 99 mg/dL (74-106); Magnesium 1.9 mg/dL (1.6-2.6); Potassium 4.4 mmol/L (3.5-5.1); Sodium 131 mmol/L (136-145); Total Protein 4.9 g/dL (5.7-8.2)
[2023-06-17 06:58] LABS: Red Cell Distribution Width 21.2 % (11.8-14.3)
[2023-06-17 06:59] LABS: Basophils % (manual) 0 (0.0-2.0); Blast Cells 0; Eosinophils % (manual) 0 (0-7); Myelocytes % 0; Promyelocytes % 0; Reactive Lymphocytes 0
[2023-06-17 08:04] LABS: Band Neutrophils % (manual) 9; Lymphocytes % (manual) 13 (10.0-50.0); Metamyelocytes % 1; Monocytes % (manual) 5 (0-12); Platelet Estimate Decreased
[2023-06-17 08:05] LABS: Tear Drop Cells FEW
[2023-06-18] VITALS (8 sets, daily range): BP systolic 103–120; BP diastolic 59–80; PULSE 71–103; RESP 16–20; TEMP 97–98.1; O2SAT 93–100
[2023-06-18] MEDS ORDERED: methylPREDNISolone SOD SUCC 125 MG/2 ML VL IV SCH (15:30)
[2023-06-18] MEDS: predniSONE 20 MG TAB PO SCH (21:41)
[2023-06-19 01:00] VITALS: BP 113/59; PULSE 97; RESP 20; TEMP 98.3; O2SAT 97
[2023-06-19 05:00] VITALS: BP 104/61; PULSE 98; TEMP 98.1; O2SAT 99
[2023-06-19 07:30] VITALS: PULSE 93
[2023-06-19 09:00] VITALS: BP 113/66; PULSE 97; RESP 16; TEMP 98.4; O2SAT 93
[2023-06-19 13:00] VITALS: BP 125/70; PULSE 121; RESP 16; TEMP 98.4; O2SAT 93
== END 2023-06-19 14:00 | disposition left against medical advice (07) | DRG 890 ==
LOC: ER 15:21 → TELE-EAST 19:06 → TELE 19:06 → TELE-EAST 23:14 → ICU WEST 06-12 14:00 → TELE-EAST 06-15 15:41
PROVIDERS: ADMIT Nurse Practitioner Family; ATTEND Internal Medicine
PROC: 30233N1 Transfusion of Nonautologous Red Blood Cells into Peripheral Vein, Percutaneous Approach (ICD-10-PCS; principal; 2023-06-11)
DX: B20 Human immunodeficiency virus [HIV] disease (principal); A41.9 Sepsis, unspecified organism; B59 Pneumocystosis; J96.01 Acute respiratory failure with hypoxia; E22.2 Syndrome of inappropriate secretion of antidiuretic hormone; D69.6 Thrombocytopenia, unspecified; C46.9 Kaposi's sarcoma, unspecified; D63.1 Anemia in chronic kidney disease; Z53.29 Procedure and treatment not carried out because of patient's decision for other reasons; Z20.822 Contact with and (suspected) exposure to COVID-19; H10.32 Unspecified acute conjunctivitis, left eye; N18.9 Chronic kidney disease, unspecified; F17.210 Nicotine dependence, cigarettes, uncomplicated; L02.01 Cutaneous abscess of face; Z88.1 Allergy status to other antibiotic agents; Z91.199 Patient's noncompliance with other medical treatment and regimen due to unspecified reason; Z88.3 Allergy status to other anti-infective agents; Z59.02 Unsheltered homelessness
CPT/HCPCS: 36415; 36600; 71045; 71250; 80053; 80307; 81001; 82040; 82607; 82668; 82728; 82746; 82805; 83010; 83540; 83550; 83605; 83615; 83735; 83930; 83935; 84300; 84439; 84443; 85007; 85025; 85027; 85045; 85384; 85652; 86141; 86360; 86592; 86803; 86850; 86880; 86885; 86900; 86901; 86920; 87040; 87070; 87081; 87205; 87340; 87426; 87536; 87556; 87804; 87880; 93005; 97163; 99291; G0378; J0171; J1100; J2250; J2405; J2543; J3480; J3490; J7060

== ENCOUNTER 2023-06-21 12:16 | Inpatient (IN) | payer MEDICAID ==
[~2023-06-21] VITALS: Ht 177.8 cm; Wt 79.0 kg
[~2023-06-21 12:16] MED LIST changes: -AMOX875T3 PO; -BACDST PO; -DOXY-286 PO; -IBUP-1456 PO; -LEVO500T91 PO; -SULF400T11 PO
[2023-06-21] MEDS: DexAMETHasone SOD PHOS 10MG/1ML VIAL INJ IV ONE (12:30)
[2023-06-21] MEDS: IPRATROPIUM BROM 0.5 MG/2.5ML INH SOL NEB ONE (13:00)
[2023-06-21] MEDS: ALBUTEROL SULF 2.5 MG/0.5ML(0.5%) NEB SOLN NEB ONE (13:00)
[2023-06-21 13:45] LABS: Hematocrit 24.7 % (41.0-53.0); Mean Corpuscular Hemoglobin 29.8 pg (28.0-32.0); Mean Corpuscular Hgb Conc. 32.5 g/dL (32.0-36.0); Mean Corpuscular Volume 91.8 fL (80.0-100.0); Red Blood Cells 2.69 10^6/uL (4.5-5.90); Red Cell Distribution Width 23.8 % (11.8-14.3); White Blood Cell 10.1 10^3/uL (4.4-10.8)
[2023-06-21 13:47] LABS: Basophils % (manual) 0 (0.0-2.0); Blast Cells 0; Eosinophils % (manual) 0 (0-7); Metamyelocytes % 0; Myelocytes % 0; Promyelocytes % 0; Reactive Lymphocytes 0
[2023-06-21 13:48] LABS: Base Excess -4.6 mmol/L (-2.0-2.0)
[2023-06-21 13:59] LABS: Alanine Aminotransferase 47 U/L (7-40); Alkaline Phosphatase 131 U/L (46-116); Anion Gap 13 (5-15); Calcium 7.7 mg/dL (8.7-10.4); Carbon Dioxide 20 mmol/L (20-30); Chloride 93 mmol/L (98-107); Glucose 152 mg/dL (74-106); Potassium 5.4 mmol/L (3.5-5.1)
[2023-06-21 14:00] LABS: Albumin 2.6 g/dL (3.2-4.8); Aspartate Aminotransferase 67 U/L (13-40); BUN/Creatinine Ratio 19.6 (10.0-20.0); Bilirubin, Total 0.8 mg/dL (0.2-1.0); Blood Urea Nitrogen 38 mg/dL (9-23); Total Protein 4.7 g/dL (5.7-8.2)
[2023-06-21] MEDS ORDERED: VANCOMYCIN PER PHARMACY 0 MG IV SCH (14:00)
[2023-06-21] MEDS: SODIUM CHLORIDE 0.9% 1,000 ML IV ONE ×2 (14:00→15:58)
[2023-06-21 14:04] LABS: Sodium 126 mmol/L (136-145)
[2023-06-21 14:17] LABS: Band Neutrophils % (manual) 8; Lymphocytes % (manual) 13 (10.0-50.0); Monocytes % (manual) 10 (0-12)
[2023-06-21] MEDS: PIPERACILLIN-TAZOB 3.375GM 100 ML IV ONE (14:17)
[2023-06-21 14:18] LABS: Large Platelets FEW; Platelet Estimate Decrea
[2023-06-21 14:36] VITALS: PULSE 130; RESP 32; O2SAT 95
[2023-06-21 15:39] LABS: Lactic Acid w/Reflex 6.4 mmol/L (0.4-2.0)
[2023-06-21] MEDS: ENOXAPARIN SOD 40 MG/0.4 ML SYRINGE SC ONE (15:45)
[2023-06-21] MEDS: VANCOMYCIN 1GM/200ML 200 ML IV ONE (16:30)
[2023-06-21] MEDS: ACETAMINOPHEN 500 MG TAB PO ONE (18:19)
[2023-06-21] MEDS: CALCIUM GLUC 1,000mg/50ml-NS 50 ML IV SCH (18:31)
[2023-06-21 19:48] VITALS: PULSE 116; RESP 20; O2SAT 97
[2023-06-21 20:51] LABS: Urine Bacteria None Seen /hpf (None Seen)
[2023-06-21 21:02] LABS: Urine Blood TRACE /uL (Negative); Urine Clarity Clear (Clear); Urine Color Light-Yellow (Yellow); Urine Mucus FEW (None Seen); Urine Protein, UAD TRACE (Negative); Urine Specific Gravity 1.017 (1.001-1.035); Urine Urobilinogen Normal (Negative); Urine WBC 5 /hpf (0 - 3)
[2023-06-22] VITALS (7 sets, daily range): BP systolic 109–130; BP diastolic 40–76; PULSE 111–148; RESP 22–35; TEMP 98.2–98.8; O2SAT 91–100
[2023-06-22] MEDS ORDERED: NITROGLYCERIN 0.4 MG SL TAB SL PRN (06:00)
[2023-06-22] MEDS ORDERED: ONDANSETRON HCL 4 MG/2 ML VIAL IV PRN (06:00)
[2023-06-22] MEDS ORDERED: ACETAMINOPHEN 325 MG TAB PO PRN (06:00)
[2023-06-22] MEDS ORDERED: HYDROcodone-ACET 5/325MG TAB PO PRN (06:00)
[2023-06-22] MEDS ORDERED: ALBUTEROL SULF 2.5 MG/0.5ML(0.5%) NEB SOLN NEB PRN (06:00)
[2023-06-22] MEDS ORDERED: MORPHINE SULFATE INJ 2 MG/ml SYRG IV PRN (06:00)
[2023-06-22] MEDS: SODIUM CHLORIDE 0.9% 1,000 ML IV ONE (06:10)
[2023-06-22 06:37] LABS: Chloride 96 mmol/L (98-107); Potassium 4.8 mmol/L (3.5-5.1); Sodium 126 mmol/L (136-145)
[2023-06-22 06:38] LABS: Anion Gap 7 (5-15); Calcium 7.9 mg/dL (8.7-10.4); Carbon Dioxide 23 mmol/L (20-30)
[2023-06-22 06:43] LABS: BUN/Creatinine Ratio 22.1 (10.0-20.0); Blood Urea Nitrogen 33 mg/dL (9-23); Glucose 118 mg/dL (74-106)
[2023-06-22] MEDS: dilTIAZem 25 MG/5 ML VIAL IV ONE (07:03)
[2023-06-22] MEDS: cefTRIAXone 1GM/50ML D5W 50 ML IV SCH (08:44)
[2023-06-22] MEDS: AZITHROMYCIN 500MG/ 250ML 250 ML IV SCH (09:37)
[2023-06-22 10:59] LABS: Eosinophils # (auto) 0 10 ^3/uL (0-0.8); Eosinophils % (auto) 0.1 % (0.0-7.0); Monocytes # (auto) 0.3 10 ^3/uL (0-1.3); Nucleated Red Blood Cells % 1.9 %
[2023-06-22 11:01] LABS: Basophils # (auto) 0.1 10 ^3/uL (0-0.2); Basophils % (auto) 0.9 % (0.0-2.0); Hematocrit 18.4 % (41.0-53.0); Lymphocytes # (auto) 0.6 10 ^3/uL (0.4-5.4); Lymphocytes % (auto) 6.8 % (10.0-50.0); Mean Corpuscular Hemoglobin 30.6 pg (28.0-32.0); Mean Corpuscular Hgb Conc. 33.3 g/dL (32.0-36.0); Monocytes % (auto) 4.2 % (0.0-12.0); Neutrophils # (auto) 7.3 10 ^3/uL (1.6-8.6); White Blood Cell 8.3 10^3/uL (4.4-10.8)
[2023-06-22 11:03] LABS: Red Cell Distribution Width 25.2 % (11.8-14.3)
[2023-06-22 11:05] LABS: Hemoglobin 6.1 g/dL (13.5-17.5)
[2023-06-22 11:23] LABS: Creatinine, Urine 76.84 mg/dL (30.0-125.0)
[2023-06-22] MEDS: VANCOMYCIN 1GM/200ML 200 ML IV SCH (11:57)
[2023-06-22] MEDS: BIKTARVY PO SCH (12:48)
[2023-06-22] MEDS: SULFAMETHOX W/TRIMETH(800/160MG) DS TAB PO ONE (16:48)
[2023-06-22] MEDS: SODIUM CHLORIDE 0.9% 1,000 ML IV SCH (18:43)
[2023-06-22 20:07] LABS: Rapid Influenza A Negative (Negative); Rapid Influenza B Negative (Negative)
[2023-06-22 20:09] LABS: COVID19 ANTIGEN SOFIA FIA NEGATIVE (NEGATIVE)
[2023-06-22] MEDS: LABETALOL HCL 5 MG/ML 4ML SYRINGE IV ONE (21:24)
[2023-06-22] MEDS: SULFAMETHOX W/TRIMETH(800/160MG) DS TAB PO SCH (21:25)
[2023-06-23] VITALS (11 sets, daily range): BP systolic 88–129; BP diastolic 34–64; PULSE 118–135; RESP 16–38; TEMP 98–98.2; O2SAT 93–100
[2023-06-23] MEDS: dilTIAZem 125mg/125ml BAG KIT 125 ML IV SCH (00:30)
[2023-06-23] MEDS: ACETAMINOPHEN 325 MG TAB PO ONE (02:52)
[2023-06-23 08:47] LABS: Hematocrit 18.5 % (41.0-53.0); Red Cell Distribution Width 17.5 % (11.8-14.3)
[2023-06-23 08:49] LABS: Mean Corpuscular Hemoglobin 29.4 pg (28.0-32.0); Mean Corpuscular Hgb Conc. 33.3 g/dL (32.0-36.0); Mean Corpuscular Volume 88.2 fL (80.0-100.0); White Blood Cell 6.2 10^3/uL (4.4-10.8)
[2023-06-23 08:56] LABS: INR 2.12 (0.9-1.15); Partial Thromboplastin Time 35.1 SEC (24.5-34.5); Prothrombin Time 21.2 sec (9.3-11.8)
[2023-06-23 08:58] LABS: Alanine Aminotransferase 47 U/L (7-40); Albumin 2.2 g/dL (3.2-4.8); Alkaline Phosphatase 103 U/L (46-116); Anion Gap 6 (5-15); Aspartate Aminotransferase 65 U/L (13-40); BUN/Creatinine Ratio 25.7 (10.0-20.0); Bilirubin, Total 0.6 mg/dL (0.2-1.0); Blood Urea Nitrogen 39 mg/dL (9-23); Calcium 6.9 mg/dL (8.5-10.1); Carbon Dioxide 19 mmol/L (20-30); Chloride 98 mmol/L (98-107); Glucose 113 mg/dL (74-106); Potassium 4.5 mmol/L (3.5-5.1); Sodium 123 mmol/L (136-145); Total Protein 4.1 g/dL (5.7-8.2)
[2023-06-23 09:01] LABS: Free T3 1.35 pg/mL (2.3-4.2); Free T4 (Free Thyroxine) 0.48 ng/dL (0.89-1.76)
[2023-06-23 09:13] LABS: Hemoglobin 6.2 g/dL (13.5-17.5)
[2023-06-23 09:14] LABS: Band Neutrophils % (manual) 0; Basophils % (manual) 0 (0.0-2.0); Blast Cells 0; Metamyelocytes % 0; Myelocytes % 0; Promyelocytes % 0; Reactive Lymphocytes 0
[2023-06-23] MEDS: AZITHROMYCIN 250 MG TAB PO SCH (10:44)
[2023-06-23] MEDS: LORazepam 2MG/ML-1ML VIAL IV ONE (10:44)
[2023-06-23] MEDS: AZITHROMYCIN 500MG/ 250ML 250 ML IV ONE (11:00)
[2023-06-23] MEDS ORDERED: LORazepam 2MG/ML-1ML VIAL IV PRN (11:00)
[2023-06-23] MEDS: MIDAZOLAM DRIP 50 mg/50mL 50 ML IV ONE (12:08)
[2023-06-23] MEDS: ETOMIDATE (2MG/ML) 20ML VIAL IV ONE (12:13)
[2023-06-23] MEDS: ROCURONIUM 10MG/ML 10ML VIAL IV ONE (12:13)
[2023-06-23] MEDS: fentaNYL Drip 2500mCg/250mlNS 250 ML IV SCH (12:15)
[2023-06-23] MEDS: MIDAZOLAM DRIP 50 mg/50mL 50 ML IV SCH (12:16)
[2023-06-23] MEDS: PANTOPRAZOLE 40mg/50ML NS AE 50 ML IV SCH (12:46)
[2023-06-23] MEDS: PANTOPRAZOLE 80 MG in SODIUM CHL 0.9% 100 ML IV ONE (12:46)
[2023-06-23 13:07] LABS: Baso (Absolute) 0.1 x10E3/uL (0.0-0.2); Basos 1 % (Not Estab.); Eos 0 % (Not Estab.); Hematology Comments: Note: (.); Lymphs 7 % (Not Estab.); Lymphs (Absolute) 0.5 x10E3/uL (0.7-3.1); MCH 29.8 pg (26.6-33.0); MCHC 33.7 g/dL (31.5-35.7); MCV 88 fL (79-97); Monocytes 7 % (Not Estab.); Monocytes (Absolute) 0.5 x10E3/uL (0.1-0.9); Neutrophils 85 % (Not Estab.); Neutrophils (Absolute) 6.4 x10E3/uL (1.4-7.0); Nucleated Red Blood Cells 7 % (0 - 0); Platelets 46 x10E3/uL (150-450); RBC 1.98 x10E6/uL (4.14-5.80); RDW 21.2 % (11.6-15.4); WBC 7.5 x10E3/uL (3.4-10.8)
[2023-06-23 13:41] LABS: Eosinophils % (manual) 1 (0-7); Lymphocytes % (manual) 7 (10.0-50.0); Monocytes % (manual) 3 (0-12); Platelet Estimate Decreased
[2023-06-23 14:07] LABS: % CD 4 Pos Lymph 0.6 % (30.8-58.5); % CD 8 Pos Lymph 74.3 % (12.0-35.5); Absolute CD 4 Helper 3 /uL (359-1519); CD4/CD8 Ratio 0.01 (0.92-3.72)
[2023-06-23 14:08] LABS: Base Excess -8.5 mmol/L (-2.0-2.0)
[2023-06-23] MEDS: NOREPINEPHRINE 8 MG/250ML KIT 250 ML IV SCH (15:15)
[2023-06-23] MEDS: SODIUM CHLORIDE 0.9% 1,000 ML IV SCH (16:01)
[2023-06-23] MEDS ORDERED: CEFEPIME 1GM/ 50ML 50 ML IV ONE (17:45)
[2023-06-23] MEDS: CEFEPIME 2GM/50ML NS 50 ML IV ONE (18:07)
[2023-06-23] MEDS: SULFAMETH TRIMETH IV SCH (21:12)
[2023-06-23] MEDS: D5W 5% IV SCH (21:12)
[2023-06-23 21:35] LABS: Eosinophils # (auto) 0 10 ^3/uL (0-0.8); Eosinophils % (auto) 0.1 % (0.0-7.0); Hemoglobin 7.3 g/dL (13.5-17.5); Mean Corpuscular Hemoglobin 29.7 pg (28.0-32.0); Red Blood Cells 2.46 10^6/uL (4.5-5.90)
[2023-06-23 21:37] LABS: Basophils # (auto) 0.1 10 ^3/uL (0-0.2); Basophils % (auto) 0.9 % (0.0-2.0); Hematocrit 22.2 % (41.0-53.0); Lymphocytes # (auto) 1.1 10 ^3/uL (0.4-5.4); Lymphocytes % (auto) 10.9 % (10.0-50.0); Mean Corpuscular Hgb Conc. 32.9 g/dL (32.0-36.0); Mean Corpuscular Volume 90.2 fL (80.0-100.0); Monocytes % (auto) 9.8 % (0.0-12.0); Neutrophils % (auto) 78.3 % (37.0-80.0); Nucleated Red Blood Cells % 1.9 %; Red Cell Distribution Width 15.6 % (11.8-14.3); White Blood Cell 10.2 10^3/uL (4.4-10.8)
[2023-06-23] MEDS: ACETAMINOPHEN 650 MG RECT SUPP PR PRN (21:43)
[2023-06-23] MEDS ORDERED: CEFEPIME 1GM/ 50ML 50 ML IV SCH (22:00)
[2023-06-24] VITALS (19 sets, daily range): BP systolic 97–129; BP diastolic 33–73; PULSE 110–130; RESP 17–27; TEMP 93.7–102; O2SAT 91–100
[2023-06-24] MEDS: CEFEPIME 2GM/50ML NS 50 ML IV SCH (02:35)
[2023-06-24] MEDS: PANTOPRAZOLE 40 MG/10 ML VIAL INJ IV ONE (03:21)
[2023-06-24 06:17] LABS: Hematocrit 19.4 % (41.0-53.0); Mean Corpuscular Hemoglobin 30.2 pg (28.0-32.0); Mean Corpuscular Hgb Conc. 33.6 g/dL (32.0-36.0); Mean Corpuscular Volume 89.8 fL (80.0-100.0); Red Blood Cells 2.16 10^6/uL (4.5-5.90); Red Cell Distribution Width 16.5 % (11.8-14.3); White Blood Cell 8.5 10^3/uL (4.4-10.8)
[2023-06-24 06:20] LABS: Base Excess -11.6 mmol/L (-2.0-2.0)
[2023-06-24 06:21] LABS: Alanine Aminotransferase 44 U/L (7-40); Albumin 1.9 g/dL (3.2-4.8); Alkaline Phosphatase 90 U/L (46-116); Anion Gap 7 (5-15); Aspartate Aminotransferase 74 U/L (13-40); BUN/Creatinine Ratio 19.9 (10.0-20.0); Calcium 6.7 mg/dL (8.7-10.4); Carbon Dioxide 17 mmol/L (20-30); Chloride 102 mmol/L (98-107); Glucose 140 mg/dL (74-106); Magnesium 1.9 mg/dL (1.6-2.6); Potassium 4.8 mmol/L (3.5-5.1); Sodium 126 mmol/L (136-145)
[2023-06-24 06:22] LABS: Bilirubin, Total 0.4 mg/dL (0.2-1.0); Total Protein 3.7 g/dL (5.7-8.2)
[2023-06-24 06:29] LABS: Blood Urea Nitrogen 54 mg/dL (9-23)
[2023-06-24 06:41] LABS: Hemoglobin 6.5 g/dL (13.5-17.5)
[2023-06-24 06:42] LABS: Basophils % (manual) 0 (0.0-2.0); Blast Cells 0; Eosinophils % (manual) 0 (0-7); Metamyelocytes % 0; Myelocytes % 0; Promyelocytes % 0; Reactive Lymphocytes 0
[2023-06-24 07:37] LABS: INR 2.22 (0.9-1.15); Partial Thromboplastin Time 41.1 SEC (24.5-34.5); Prothrombin Time 22.1 sec (9.3-11.8)
[2023-06-24] MEDS ORDERED: LACTATED RINGER'S 1,000 ML IV SCH (08:00)
[2023-06-24 08:35] LABS: Band Neutrophils % (manual) 11; Lymphocytes % (manual) 12 (10.0-50.0); Monocytes % (manual) 4 (0-12)
[2023-06-24 08:36] LABS: Platelet Estimate Decreased
[2023-06-24 08:48] LABS: Lactic Acid w/Reflex 2.3 mmol/L (0.4-2.0)
[2023-06-24] MEDS ORDERED: AZITHROMYCIN 500MG/ 250ML 250 ML IV SCH (10:00)
[2023-06-24] MEDS ORDERED: LIDOCAINE 2% JELLY 11ml (GLYDO) ONE (10:38)
[2023-06-24] MEDS ORDERED: GLYCOPYRROLATE 0.2 MG/ML 1ML VIAL ONE (10:39)
[2023-06-24] MEDS ORDERED: EPINEPHrine HCL 1 MG/1 ML AMP ONE (10:39)
[2023-06-24] MEDS ORDERED: LIDOCAINE 2%HCL (LOCAL ANESTH.) INJ 20ML MDV ONE (10:39)
[2023-06-24] MEDS: SODIUM CHLORIDE 0.9% 1,000 ML IV SCH ×2 (10:45→16:00)
[2023-06-24 15:01] LABS: Alanine Aminotransferase 45 U/L (7-40); Alkaline Phosphatase 98 U/L (46-116); Anion Gap 8 (5-15); Aspartate Aminotransferase 93 U/L (13-40); BUN/Creatinine Ratio 21.3 (10.0-20.0); Calcium 6.6 mg/dL (8.7-10.4); Carbon Dioxide 16 mmol/L (20-30); Chloride 104 mmol/L (98-107); Glucose 117 mg/dL (74-106); Magnesium 1.9 mg/dL (1.6-2.6); Potassium 5.4 mmol/L (3.5-5.1); Sodium 128 mmol/L (136-145)
[2023-06-24 15:02] LABS: Bilirubin, Total 0.3 mg/dL (0.2-1.0); Total Protein 3.6 g/dL (5.7-8.2)
[2023-06-24 15:11] LABS: Blood Urea Nitrogen 64 mg/dL (9-23)
[2023-06-24 16:03] LABS: Hematocrit 27.2 % (41.0-53.0); Hemoglobin 8.7 g/dL (13.5-17.5); Mean Corpuscular Hemoglobin 28.8 pg (28.0-32.0); Mean Corpuscular Hgb Conc. 31.8 g/dL (32.0-36.0); Mean Corpuscular Volume 90.6 fL (80.0-100.0); Red Cell Distribution Width 16.8 % (11.8-14.3); White Blood Cell 12.6 10^3/uL (4.4-10.8)
[2023-06-24 16:14] LABS: Basophils % (manual) 0 (0.0-2.0); Blast Cells 0; Eosinophils % (manual) 0 (0-7); Myelocytes % 0; Promyelocytes % 0; Reactive Lymphocytes 0
[2023-06-24] MEDS: CALCIUM GLUC 1,000mg/50ml-NS 50 ML IV ONE (16:46)
[2023-06-24 16:51] LABS: Phosphorus 6.8 mg/dL (2.4-5.1)
[2023-06-24] MEDS: ACETAMINOPHEN 650 MG RECT SUPP PR PRN (16:57)
[2023-06-24 17:27] LABS: Band Neutrophils % (manual) 21; Lymphocytes % (manual) 9 (10.0-50.0); Monocytes % (manual) 6 (0-12)
[2023-06-24 17:28] LABS: Anisocytosis Moderate; Macrocytosis Slight; Metamyelocytes % 1; Platelet Estimate Decreased
[2023-06-24] MEDS: DEXTROSE (50%) 50ML SYRG IV ONE (17:30)
[2023-06-24] MEDS: InsuLIN REG 1unit/0.01ml Soln (100units/ml) IV ONE (17:37)
[2023-06-24] MEDS: PROPOFOL 100 ML IV SCH (19:00)
[2023-06-24] MEDS: PROPOFOL 100 ML IV ONE (19:07)
[2023-06-24 20:46] LABS: Alanine Aminotransferase 42 U/L (7-40); Albumin 1.9 g/dL (3.2-4.8); Alkaline Phosphatase 100 U/L (46-116); Anion Gap 9 (5-15); Aspartate Aminotransferase 99 U/L (13-40); Bilirubin, Total 0.3 mg/dL (0.2-1.0); Blood Urea Nitrogen 65 mg/dL (9-23); Calcium 6.7 mg/dL (8.7-10.4); Carbon Dioxide 15 mmol/L (20-30); Chloride 104 mmol/L (98-107); Glucose 95 mg/dL (74-106); Magnesium 1.9 mg/dL (1.6-2.6); Sodium 128 mmol/L (136-145); Total Protein 3.4 g/dL (5.7-8.2)
[2023-06-24 21:01] LABS: Lactic Acid w/Reflex 3.2 mmol/L (0.4-2.0)
[2023-06-24] MEDS: SULFAMETH TRIMETH IV SCH (23:53)
[2023-06-24] MEDS: D5W 5% IV SCH (23:53)
[2023-06-25] VITALS (16 sets, daily range): BP systolic 48–119; BP diastolic 12–43; PULSE 47–123; RESP 22–26; TEMP 91; O2SAT 69–96
[2023-06-25] MEDS: PHENYLEPHRINE IV 250 ML IV SCH (05:17)
[2023-06-25 07:22] LABS: Base Excess -17.8 mmol/L (-2.0-2.0)
[2023-06-25 07:25] LABS: Hematocrit 22.6 % (41.0-53.0); Mean Corpuscular Hgb Conc. 32.1 g/dL (32.0-36.0)
[2023-06-25 07:27] LABS: Hemoglobin 7.2 g/dL (13.5-17.5); Mean Corpuscular Hemoglobin 29.4 pg (28.0-32.0); Mean Corpuscular Volume 91.7 fL (80.0-100.0); Red Blood Cells 2.46 10^6/uL (4.5-5.90); Red Cell Distribution Width 17.5 % (11.8-14.3); White Blood Cell 10.6 10^3/uL (4.4-10.8)
[2023-06-25] MEDS ORDERED: SODIUM CHLORIDE 0.9% 1,000 ML IV SCH (07:30)
[2023-06-25 07:39] LABS: Basophils % (manual) 0 (0.0-2.0); Blast Cells 0; Promyelocytes % 0; Reactive Lymphocytes 0
[2023-06-25 07:52] LABS: Alanine Aminotransferase 39 U/L (7-40); Albumin 1.9 g/dL (3.2-4.8); Alkaline Phosphatase 97 U/L (46-116); Anion Gap 9 (5-15); Aspartate Aminotransferase 104 U/L (13-40); BUN/Creatinine Ratio 13.9 (10.0-20.0); Blood Urea Nitrogen 56 mg/dL (9-23); Calcium 6.6 mg/dL (8.7-10.4); Carbon Dioxide 14 mmol/L (20-30); Chloride 103 mmol/L (98-107); Creatine Kinase IFCC 1298 U/L (46-171); Glucose 113 mg/dL (74-106); Magnesium 2.1 mg/dL (1.6-2.6); Phosphorus 9.2 mg/dL (2.4-5.1); Sodium 126 mmol/L (136-145)
[2023-06-25 07:53] LABS: Bilirubin, Total 0.2 mg/dL (0.2-1.0); Total Protein 3.6 g/dL (5.7-8.2)
[2023-06-25 07:58] LABS: INR 1.61 (0.9-1.15); Partial Thromboplastin Time 40.2 SEC (24.5-34.5); Prothrombin Time 16.4 sec (9.3-11.8)
[2023-06-25 08:03] LABS: Lactic Acid w/Reflex 3.6 mmol/L (0.4-2.0); Potassium 6.2 mmol/L (3.5-5.1)
[2023-06-25] MEDS: SODIUM CHLORIDE 0.9% 1,000 ML IV SCH (08:42)
[2023-06-25] MEDS: CALCIUM GLUC 1,000mg/50ml-NS 50 ML IV ONE (08:47)
[2023-06-25] MEDS: LACTULOSE 20Gm/30ML SOLN PO ONE (08:48)
[2023-06-25] MEDS: ALBUTEROL SULF 2.5 MG/0.5ML(0.5%) NEB SOLN NEB ONE (08:57)
[2023-06-25] MEDS: FUROSEMIDE 40 MG/4 ML VIAL IV ONE (09:01)
[2023-06-25] MEDS: SODIUM BICARB 8.4% 50Meq/50ml SYR INJ IV ONE (09:05)
[2023-06-25 09:21] LABS: Band Neutrophils % (manual) 11; Eosinophils % (manual) 1 (0-7); Lymphocytes % (manual) 4 (10.0-50.0); Metamyelocytes % 2; Monocytes % (manual) 2 (0-12); Myelocytes % 1
[2023-06-25 09:23] LABS: Anisocytosis Slight
[2023-06-25 09:24] LABS: Platelet Estimate Markedly Decreased; Polychromasia Slight; Tear Drop Cells FEW
[2023-06-25] MEDS: InsuLIN REG 1unit/0.01ml Soln (100units/ml) IV ONE (09:31)
[2023-06-25] MEDS: DEXTROSE (50%) 50ML SYRG IV ONE (09:31)
[2023-06-25] MEDS: VASOPRESSIN 20 UNITS in SODIUM CHL 0.9% 99 ML IV SCH (10:15)
[2023-06-25 10:49] LABS: Base Excess -21.7 mmol/L (-2.0-2.0)
[2023-06-25] MEDS: SODIUM BICARB 50mEq/50ml Vial 150 ML in D5W 5% 1,000 ML IV SCH (11:36)
[2023-06-25] MEDS: BUMETANIDE INJECTION 25 MG in GIVE UN-DILUTED 0 ML IV SCH (11:56)
[2023-06-25] MEDS: LACTULOSE 20Gm/30ML SOLN PO SCH (14:25)
[2023-06-25] MEDS: ALBUMIN 25% 100 ML IV SCH (14:28)
[2023-06-25] MEDS: SODIUM ZIRCONIUM CYCL 10 GM PAK PO SCH (14:33)
[2023-06-25] MEDS: SODIUM CHL 0.9% 1000 ML BAG XX ONE (16:41)
[2023-06-25] MEDS: PROPOFOL 100 ML IV ONE (20:52)
[2023-06-25] MEDS: MIDAZOLAM DRIP 50 mg/50mL 50 ML IV ONE (22:14)
[2023-06-25] MEDS: EPOETIN ALFA-EPBX 10,000 UNIT/1ML VIAL SC ONE (23:13)
[2023-06-26] MEDS ORDERED: D5W 5% IV SCH
[2023-06-26] MEDS ORDERED: SULFAMETH TRIMETH IV SCH
[2023-06-26] MEDS ORDERED: CEFEPIME 2GM/50ML NS 50 ML IV SCH (04:00)
== END 2023-06-25 23:40 | DRG 890 ==
LOC: ER 12:16 → EDBD 12:16 → TELE 06-22 05:58 → ICU WEST 06-25 11:17 → TELE 06-25 12:05
PROVIDERS: ADMIT Internal Medicine Pulmonary Disease; ATTEND Radiology Diagnostic Radiology
PROC: 5A1945Z Respiratory Ventilation, 24-96 Consecutive Hours (ICD-10-PCS; principal; 2023-06-23)
PROC: 0BH17EZ Insertion of Endotracheal Airway into Trachea, Via Natural or Artificial Opening (ICD-10-PCS; 2023-06-23)
PROC: 02HV33Z Insertion of Infusion Device into Superior Vena Cava, Percutaneous Approach (ICD-10-PCS; 2023-06-23)
PROC: B548ZZA Ultrasonography of Superior Vena Cava, Guidance (ICD-10-PCS; 2023-06-23)
PROC: 30233N1 Transfusion of Nonautologous Red Blood Cells into Peripheral Vein, Percutaneous Approach (ICD-10-PCS; 2023-06-23)
PROC: 0B9B8ZZ Drainage of Left Lower Lobe Bronchus, Via Natural or Artificial Opening Endoscopic (ICD-10-PCS; 2023-06-24)
PROC: 0B958ZZ Drainage of Right Middle Lobe Bronchus, Via Natural or Artificial Opening Endoscopic (ICD-10-PCS; 2023-06-24)
PROC: 30233R1 Transfusion of Nonautologous Platelets into Peripheral Vein, Percutaneous Approach (ICD-10-PCS; 2023-06-24)
DX: A41.9 Sepsis, unspecified organism (principal); B20 Human immunodeficiency virus [HIV] disease; G93.41 Metabolic encephalopathy; N17.0 Acute kidney failure with tubular necrosis; J80 Acute respiratory distress syndrome; E43 Unspecified severe protein-calorie malnutrition; R65.21 Severe sepsis with septic shock; R57.1 Hypovolemic shock; J81.1 Chronic pulmonary edema; D69.6 Thrombocytopenia, unspecified; E83.39 Other disorders of phosphorus metabolism; E83.51 Hypocalcemia; J15.9 Unspecified bacterial pneumonia; J15.69 Pneumonia due to other Gram-negative bacteria; E87.1 Hypo-osmolality and hyponatremia; D50.9 Iron deficiency anemia, unspecified; E87.5 Hyperkalemia; E88.09 Other disorders of plasma-protein metabolism, not elsewhere classified; Z20.822 Contact with and (suspected) exposure to COVID-19; F17.210 Nicotine dependence, cigarettes, uncomplicated; M62.82 Rhabdomyolysis; H30.92 Unspecified chorioretinal inflammation, left eye; E03.9 Hypothyroidism, unspecified; N18.9 Chronic kidney disease, unspecified; E72.20 Disorder of urea cycle metabolism, unspecified; F12.90 Cannabis use, unspecified, uncomplicated; Z59.00 Homelessness unspecified; Z68.25 Body mass index [BMI] 25.0-25.9, adult; Z91.199 Patient's noncompliance with other medical treatment and regimen due to unspecified reason; Z86.2 Personal history of diseases of the blood and blood-forming organs and certain disorders involving the immune mechanism
CPT/HCPCS: 31500; 31645; 36415; 36600; 70450; 70480; 71045; 76536; 76604; 76775; 80048; 80053; 80202; 80320; 81001; 82140; 82533; 82550; 82570; 82805; 82962; 83605; 83735; 83880; 83930; 83935; 84100; 84132; 84133; 84300; 84439; 84443; 84481; 84484; 85007; 85025; 85027; 85379; 85384; 85610; 85730; 86360; 86376; 86850; 86900; 86901; 86920; 87040; 87070; 87077; 87081; 87205; 87278; 87426; 87804; 93005; 93306; 93970; 94002; 94003; 94640; 96365; 96366; 96367; 97163; C9113; G0378; J0171; J0692; J1100; J1815; J2250; J2543; J2704; J3490; P9047